=== PATIENT | male | born 2000 | race Caucasian/White ===

== ENCOUNTER 2023-11-07 15:11 | Emergency (ER) | payer OTHER, SELFPAY ==
[2023-11-07 15:15] VITALS: BP 161/88
[2023-11-07 15:48] LABS: % Basophils 0.3 % (0-2); % Eosinophils 0.2 % (0-6); % Immature Granulocytes 0.4 % (0-0.5); % Lymphocytes 12.8 % (20.5-51.1); % Monocytes 3.5 % (1.7-9.3); % Neutrophils 82.8 % (42.2-75.2); Absolute Lymphocytes 1.3 10^3/uL (1.2-3.4); Absolute Monocytes 0.4 10^3/uL (0.1-0.6); Absolute Neutrophils 8.2 10^3/uL (1.4-6.5); Hematocrit 39.4 % (39.0-52.0); Hemoglobin 14.6 g/dL (13.0-18.0); Mean Corp Hgb Conc. 37.1 g/dL (33.0-37.0); Mean Corpuscular Hgb 30.9 pg (27.0-31.0); Mean Corpuscular Volume 83.5 fL (80.0-94.0); Nucleated Red Blood Cells % 0 % (-); Platelet Count 162 10^3/uL (130-400); Red Blood Cell Count 4.72 10^6/uL (4.70-6.10); Red Cell Dist. Width 11.9 % (11.5-14.5); White Blood Cell Count 9.9 10^3/uL (4.8-10.8)
[2023-11-07 15:51] LABS: ALT (SGPT) 15 U/L (0-50); AST (SGOT) 25 U/L (17-59); Albumin 4.9 g/dl (3.5-5.0); Alkaline Phosphatase 70 U/L (38-126); Blood Urea Nitrogen 7 mg/dl (9-20); Calcium 9.4 mg/dl (8.4-10.2); Carbon Dioxide 24 mmol/L (22-30); Chloride 110 mmol/L (98-107); Glucose 106 mg/dl (70-99); Sodium 141 mmol/L (135-145); Total Bilirubin 1.1 mg/dl (0.2-1.3); Total Protein 7.4 g/dl (6.3-8.2); eGFR > 60.00
--- NOTE | 2023-11-07 18:32 | ED.GENMED ---
History of Present Illness
General
Chief Complaint: Bowel Problem
Time Seen by Provider: 11/07/23 17:59
Travel History
Have you had any contact with someone who has COVID-19?: No
Do you have any symptoms of coronavirus? Fever > 100 degrees, chills, cough, shortness of breath, sore throat, loss of taste or smell, muscle aches, or headache?: No
History of Present Illness
History of Present Illness:
23-year-old male presents to the emergency department for evaluation of coffee-ground emesis and melena that began this morning. He denies any abdominal pain. Has had multiple bouts of dark black stool throughout the day. He reports that he is a
nicotine user, denies NSAID use or anticoagulant use. Social alcohol use. Feels otherwise well, denies any dizziness, lightheadedness, abdominal pain, chest pain. Does have a sensation of a lump in the throat currently
Past History
Past History
ED Past Medical History: None
ED Past Surgical History: None
Social History
Tobacco: Smoker
Review of Systems
Review of Systems
Allergies reviewed?: Yes
All Other Systems: ROS reviewed and negative except as documented in HPI and ROS
Phy Exam
Physical Exam
Physical Exam:
GEN: Well appearing, NAD, WDWN
HEENT: Oral mucosa moist, no scleral icterus
Cardiac: Regular rate
Lung: No respiratory distress, no tachypnea
Abdomen: Soft/nontender
MSK: No gross deformity or injuries
Skin: Good color, no pallor or jaundice, no rashes
Neuro: AO x3, moves all extremities freely
Psych: Calm, cooperative
Course
Orders/Labs/Results
Orders:
Orders
11/07/23 15:30
Complete Blood Count/With Diff Urgent
Comprehensive Metabolic Panel Urgent
11/07/23 18:42
Pantoprazole [Protonix] 40 mg PO NOW STA
Abnormal Lab Results
11/07/23
15:30
MCHC 37.1 H g/dL
(33.0-37.0)
MPV 12.0 H fL
(7.4-10.4)
Absolute Neuts (auto) 8.2 H 10^3/uL
(1.4-6.5)
Neutrophils % 82.8 H %
(42.2-75.2)
Lymphocytes % 12.8 L %
(20.5-51.1)
Chloride 110 H mmol/L
(98-107)
BUN 7 L mg/dl
(9-20)
Glucose 106 H mg/dl
(70-99)
11/07/23 15:30
11/07/23 15:30
Vital Signs
Initial and Last Documented VS:
Initial Vital Signs
Temp Pulse Resp BP Pulse Ox
99.1 F 76 16 161/88 98
11/07/23 15:15 11/07/23 15:15 11/07/23 15:15 11/07/23 15:15 11/07/23 15:15
Last Documented Vital Signs
Temp Pulse Resp BP Pulse Ox
99.1 F 84 16 123/105 99
11/07/23 15:15 11/07/23 18:47 11/07/23 18:47 11/07/23 18:47 11/07/23 18:47
MDM/Problems Addressed
MDM/Problems Addressed:
I had a lengthy discussion with the patient regarding the risk of a presumed bleeding peptic ulcer and the potential benefit of admission for PPIs and urgent endoscopy. Patient is insistent that he does not want to be admitted as he has 3 young
children at home for which she cares for. Given that his hemoglobin and vital signs are perfectly stable and he is not on any anticoagulants I find that it is reasonable for the patient to be discharged home. I did discuss the case with
gastroenterology who unfortunate cannot assure guaranteed follow-up however despite this I am not able to convince the patient to be admitted. He is of sound mind and judgment to make this decision. Do not feel it is appropriate to sign him out
[facility] ADVICE as I feel it is not unreasonable to try high-dose PPIs and Carafate with GI follow-up as an outpatient. He is given strict ED return parameters that would warrant admission for urgent endoscopy
*Critical Care Note
Total Time (30-74mins, 75-104mins- exclusive of procedures): Not Applicable
ED Attending Note
-
Portions of this chart may have been created with voice recognition software.� Occasional wrong word or��sound alike� substitutions may have occurred due to the inherent limitations of voice recognition software.
Discharge Plan
Departure
Patient Disposition: Home (Routine Discharge)
Date of Disposition: 11/07/23
Time of Disposition: 18:33
Patient with high blood pressure during this ER visit?: Yes
Discharge Problem:
Melena
Instructions: Peptic Ulcers (DC)
Prescriptions:
New
pantoprazole [Protonix] 40 mg tablet,delayed release (DR/EC)
40 mg PO BID 20 Days Qty: 40 0RF
sucralfate [Carafate] 1 gram tablet
1 g PO ACHS Qty: 90 0RF
No Action
acetaminophen 325 MG tablet
650 mg PO Q4HPRN PRN (Reason: mild pain) Qty: 1 0RF
ibuprofen 200 MG tablet
400 - 600 mg PO Q6HPRN PRN (Reason: moderate pain) Qty: 1 0RF
oxycodone 5 MG tablet
5 mg PO Q4HPRN PRN (Reason: breakthrough/severe pain) Qty: 10 0RF
Referrals:
Tonie Pinto MD [Active] - Call in 1-3 days for appt (Please advise the office staff this is an ER follow up and urgent evaluation is requested)
Activity Restrictions/Additional Instructions:
Please do not hesitate to return if you develop dizziness, severe abdominal pain, or increasing black stool. We presume you have a bleeding intestinal ulcer which should improve with the medications I prescribed you however please be advised that
delaying an endoscopy may result in the symptoms worsening. I did communicate with our wood preparation supervisor who will attempt to help facilitate close outpatient follow-up but we cannot guarantee that this will be within the next week. If your
symptoms improve on the medications, continue taking them as prescribed until GI follow-up.
Interventions
Interventions:
*General Assessment Last Done: 11/07/23 15:15
*Neglect/Abuse Screening Last Done: 11/07/23 15:15
*ED COVID-19 Vaccine History Last Done: 11/07/23 15:15
*Nursing Disposition Last Done: 11/07/23 18:49
Discharge Date and Time
Discharge Date/Time: 11/07/23 18:49
[2023-11-07] MEDS: PROTONIX 40 MG PO (18:46)
[2023-11-07 18:47] VITALS: BP 123/105
== END 2023-11-07 18:49 | disposition home or self-care (01) ==
LOC: EMR 15:11
PROVIDERS: Emergency Medicine; EMERGENCY PHYSICIAN Emergency Medicine
DX: K92.1 Melena (principal); R03.0 Elevated blood-pressure reading, without diagnosis of hypertension; F17.200 Nicotine dependence, unspecified, uncomplicated
CPT/HCPCS: 99283; 80053; 85025

== ENCOUNTER 2023-11-09 16:32 | Observation (INO) | payer OTHER, SELFPAY ==
[2023-11-09 14:12] VITALS: BP 149/100
[2023-11-09 15:00] VITALS: BMI 20.8
--- NOTE | 2023-11-09 15:23 | ED.GENMED ---
History of Present Illness
General
Chief Complaint: Abdominal Symptoms
Source: patient
Exam Limitations: none
Time Seen by Provider: 11/09/23 14:23
Nursing documentation reviewed up to this point in time: agreed with
Travel History
Have you had any contact with someone who has COVID-19?: No
Do you have any symptoms of coronavirus? Fever > 100 degrees, chills, cough, shortness of breath, sore throat, loss of taste or smell, muscle aches, or headache?: No
History of Present Illness
History of Present Illness:
PT IS A 23 Y/O M with h/o smoking
was seen here on 11/07 for vomiting coffee grounds, small brigth red blood and black stool
had stable labs, no sypmtoms here, hg stable, bun normal
pt recommended admsision but he delinced and eusebio carito
had f/u with GI today
says he has been asymtpatomic
she did a rectal in the office but there was no stool in vault to test
pt collected stool at home and called the office back saying that he had black streaks within his brown stool and he was told to come to the ER for an EGD. Patient presents today here saying that he supposed to have this procedure urgently. I was
aware that he was being sent here because of a call and note from Dr. Howe
But the patient did eat a couple of bites at lunchtime and thus cannot have an endoscopy today. He is willing to stay for endoscopy for tomorrow.
Past History
Past History
ED Past Medical History: None
ED Past Surgical History: None
Social History
Tobacco: Smoker
Alcohol: Occasional
Drug: None
Personal:
Living: with family
Review of Systems
Review of Systems
Allergies reviewed?: Yes
All Other Systems: Not applicable
Phy Exam
Physical Exam
Physical Exam:
GENERAL: Alert , in no apparent distress
EYE: pupils equal and reactive
NECK: Supple
ENT: o/p clr, mmm.
CARDIAC: Regular rate and rhythm .
LUNGS: Clear breath sounds bilaterally, no acute respiratory distress, no wheezes/rales/rhonchi
ABDOMEN: Soft, without focal tenderness, no r/g, no cvat, normal bowel sounds
Patient had a stool sample with him which is brown stool which tested heme negative
NEUROLOGICAL: Alert and oriented, no focal neuro deficits
SKIN: Warm and dry, skin intact.
MUSCULOSKELETAL: No edema, well perfused. neg olga's sign
PSYCH: Normal and appropriate interaction.
Course
Orders/Labs/Results
Orders:
Orders
11/09/23 Dinner
Full Liquids
Flush Continuous pump feedings with water (mL/hr): 25
11/09/23 15:22
Complete Blood Count/With Diff Urgent
Comprehensive Metabolic Panel Urgent
Pantoprazole [Protonix IV] 40 mg IV NOW STA
11/09/23 15:23
Lipase Urgent
Vital Signs
Initial and Last Documented VS:
Initial Vital Signs
Temp Pulse Resp BP Pulse Ox
98.9 F 98 16 149/100 98
11/09/23 14:12 11/09/23 14:12 11/09/23 14:12 11/09/23 14:12 11/09/23 14:12
Last Documented Vital Signs
Temp Pulse Resp BP Pulse Ox
98.9 F 98 16 149/100 98
11/09/23 14:12 11/09/23 14:12 11/09/23 14:12 11/09/23 14:12 11/09/23 14:12
MDM/Problems Addressed
Differential Diagnosis Includes:
Upper GI bleed, GERD, gastritis
MDM/Problems Addressed:
23-year-old male to be admitted for to EGD after having an episode of coffee-ground emesis followed by red bleeding and then black stool 2 days ago. Patient had a stable hemoglobin at that time and decided to leave without being admitted. He saw
GI as an outpatient today and was scheduled to have an EGD next week but then called back saying that he had dark spots within his brown stool and he was told to come to the ER. Patient is otherwise asymptomatic. He has the stool with him and I
tested for blood which was negative. He has no abdominal tenderness. He was seen by the GI team here and after much discussion because he ate several bites of a sandwich at noon he is unable to have his endoscopy today but they we will do him
tomorrow and he agreed.
*Critical Care Note
Total Time (30-74mins, 75-104mins- exclusive of procedures): Not Applicable
ED Attending Note
-
Portions of this chart may have been created with voice recognition software.� Occasional wrong word or��sound alike� substitutions may have occurred due to the inherent limitations of voice recognition software.
Discharge Plan
Departure
Patient Disposition: Admit
Date of Disposition: 11/09/23
Time of Disposition: 15:28
Admit to: Med/Surg
Presentation/result/management discussed w/ accepting MD/DO: Hospitalist
Condition: Fair
Covid-19: Not Applicable
Discharge Problem:
Abdominal pain
Prescriptions:
No Action
acetaminophen 325 MG tablet
650 mg PO Q4HPRN PRN (Reason: mild pain) Qty: 1 0RF
ibuprofen 200 MG tablet
400 - 600 mg PO Q6HPRN PRN (Reason: moderate pain) Qty: 1 0RF
oxycodone 5 MG tablet
5 mg PO Q4HPRN PRN (Reason: breakthrough/severe pain) Qty: 10 0RF
pantoprazole [Protonix] 40 mg tablet,delayed release (DR/EC)
40 mg PO BID 20 Days Qty: 40 0RF
sucralfate [Carafate] 1 gram tablet
1 g PO ACHS Qty: 90 0RF
Referrals:
NONE,* [Family Provider] -
Interventions
Interventions:
*Risk Screen - Suicide Last Done: 11/09/23 14:56
*General Assessment Last Done: 11/09/23 14:12
*Neglect/Abuse Screening Last Done: 11/09/23 14:56
*ED COVID-19 Vaccine History Last Done: 11/09/23 14:12
ZE-Bduyjs-Nxxgaacvac Assessment Last Done: 11/09/23 14:56
--- NOTE | 2023-11-09 15:31 | W.PN.UPDATE ---
Addendum entered and electronically signed by Tonie Pinto MD 11/09/23 19:39:
I saw and examined the patient.
The INDUST[employer] or PA's note was reviewed and I agree with the note.
Comment: Patient seen by Dr. Bland in the office today.
Now presenting with black stool intermittently since 11/07 after an episode of coffee-ground emesis.
Hemoglobin stable and BUN in normal range
Upper endoscopy tomorrow
N.p.o. past midnight and continue PPI
Original Note:
Update Note
Progress Note Update
see scanned in Dr. Bland note from today for consultation. noted with CGE 11/07 then dizziness and some black stool. Now presents for second ER visit with symptoms. He ate few bits of cheese steak prior to ER. hbg 14.6 11/07. last NSAID use 2
days ago.
-coffee ground emesis
-report of melena
-chronic change in stool with occasional loose stools
PLAN:
ETiology PUD, MW tear, vs other
EGD in AM
PPI
ok for full liquid dinner-- NPO in AM
check labs now
check stool studies, celiac, Immunoglobin A, TSH fecal hector as recommended by Dr. Bland
discussed with patient to stay for EGD in AM vs OP eval -- he is agreeable to stay.
--- NOTE | 2023-11-09 15:50 | HPS.HSE ---
Family Physician
-
Family Physician: * NONE
Chief Complaint
-
Coffee-ground emesis and black stool
History of Present Illness
23-year-old male who was seen in the emergency room on 11/07/2023 with coffee-ground emesis and some bright red and black stool. He had stable labs at that time. He was recommended to get admitted but he declined and wanted to go home. Patient had
a follow-up with GI today. Rectal in the office had no stool in the vault. Patient went home and had some black streaks with brown stools and he was advised to go to the ER. Patient felt dizzy yesterday but he also stated that he had some stress
yesterday. No dizziness today. No abdominal pain
Medical History
Past Medical History
Past Medical History: Reports Psychiatric (Depression)
Past Surgical History: Reports Appendectomy and Other (Tubes in the ear)
Social History
Tobacco: Vaping
Alcohol: Occasional
Drug: Marijuana
Personal:
Living: With Family
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
Family History
Family History: Other (Mother with multiple sclerosis. Father side with GI issues he is not sure what)
Allergies / Home Medications
Allergies reflects when Allergies were last updated in [employer].
Home Medications with original date entered in [employer]
Allergy/Medication List:
Allergies
Allergy/AdvReac Type Severity Reaction Status Date / Time
No Known Allergies Allergy Verified 11/09/23 14:16
Home Medications
pantoprazole 40 mg tablet,delayed release (Protonix) 40 mg PO BID 20 days #40 tabs 11/07/23
sucralfate 1 gram tablet (Carafate) 1 g PO ACHS #90 tabs 11/07/23
Medical Marijuana 0 puff inhalation HSPRN PRN anxiety/sleep 11/09/23
Medical Marijuana 4 - 5 puff inhalation HSPRN PRN anxiety 11/09/23
Review of Systems
-
A 12 point ROS was completed and negative except as noted: Yes
Respiratory: Denies Trouble Breathing
Cardiac: Denies Chest Pain
Abdomen/GI: Reports Vomiting, Bloody Stools and Black Stools; Denies Abdominal Pain
Neurological: Reports Dizzy (Yesterday)
Physical Exam
Vital Signs
Vital Signs
Temp Pulse Resp BP Pulse Ox
98.9 F 98 16 149/100 98
11/09/23 14:12 11/09/23 14:12 11/09/23 14:12 11/09/23 14:12 11/09/23 14:12
Physical Exam
General: Comfortable
Cardiac: S1/S2 and Regular Rhythm
GI: Soft, Non Tender and Normal Bowel Sounds
Neuro: Nonfocal/grossly intact
Psych: Intact Judgment/Insight
Impression/Plan
-
IMPRESSION/PLAN:
# coffee-ground emesis and also some blood and some black stools
Some dizziness yesterday
10 pound weight loss because of poor or p.o. intake
Admit
Continue PPI twice daily
EGD tomorrow
GI has been consulted
For liquid diet and n.p.o. after midnight
#Vaping-advised to stop
#Marijuana use-advised to stop
# SCDs for DVT prophylaxis
#Full code
Discussed with nursing at bedside
[2023-11-09 16:04] LABS: % Basophils 0.7 % (0-2); % Eosinophils 1.6 % (0-6); % Immature Granulocytes 0.3 % (0-0.5); % Lymphocytes 23.7 % (20.5-51.1); % Monocytes 5.9 % (1.7-9.3); % Neutrophils 67.8 % (42.2-75.2); Absolute Basophils 0.1 10^3/uL (0-0.2); Absolute Eosinophils 0.1 10^3/uL (0-0.7); Absolute Lymphocytes 1.8 10^3/uL (1.2-3.4); Absolute Monocytes 0.5 10^3/uL (0.1-0.6); Absolute Neutrophils 5.2 10^3/uL (1.4-6.5); Hematocrit 38.7 % (39.0-52.0); Hemoglobin 14.3 g/dL (13.0-18.0); Mean Corpuscular Hgb 30.8 pg (27.0-31.0); Mean Corpuscular Volume 83.4 fL (80.0-94.0); Mean Platelet Volume 11.5 fL (7.4-10.4); Nucleated Red Blood Cells % 0 % (-); Platelet Count 264 10^3/uL (130-400); Red Blood Cell Count 4.64 10^6/uL (4.70-6.10); Red Cell Dist. Width 11.9 % (11.5-14.5); White Blood Cell Count 7.6 10^3/uL (4.8-10.8)
[2023-11-09] MEDS: PROTONIX IV 40 MG IV (16:06)
[2023-11-09 16:17] LABS: ALT (SGPT) 14 U/L (0-50); AST (SGOT) 20 U/L (17-59); Albumin 4.6 g/dl (3.5-5.0); Alkaline Phosphatase 69 U/L (38-126); Blood Urea Nitrogen 10 mg/dl (9-20); Calcium 9.2 mg/dl (8.4-10.2); Carbon Dioxide 27 mmol/L (22-30); Chloride 109 mmol/L (98-107); Estimated Creatinine Clearance > 125 ml/min; Glucose 90 mg/dl (70-99); Lipase 471 U/L (23-300); Potassium 3.7 mmol/L (3.5-5.1); Sodium 140 mmol/L (135-145); Total Bilirubin 1.2 mg/dl (0.2-1.3); Total Protein 7.3 g/dl (6.3-8.2); eGFR > 60.00
[2023-11-09 16:39] LABS: IgA 179 mg/dl (70-400)
[2023-11-09] MEDS: CARAFATE 1 GRAM PO ×2 (17:22→21:24)
[2023-11-09 17:25] VITALS: BP 113/55; BMI 20.7
--- NOTE | 2023-11-09 17:38 | PTCARENOTE ---
Pt admitted to room 415-02. Admission assessment done, pt has no complaints of pain at this time.
[2023-11-09] MEDS: TYLENOL 650 MG PO (23:04)
[2023-11-09 23:09] VITALS: BP 119/49
[2023-11-10 07:00] VITALS: BP 128/79
[2023-11-10 07:55] LABS: % Basophils 0.5 % (0-2); % Eosinophils 2.9 % (0-6); % Immature Granulocytes 0.4 % (0-0.5); % Neutrophils 57.2 % (42.2-75.2); Absolute Eosinophils 0.2 10^3/uL (0-0.7); Absolute Lymphocytes 2.5 10^3/uL (1.2-3.4); Absolute Monocytes 0.7 10^3/uL (0.1-0.6); Absolute Neutrophils 4.7 10^3/uL (1.4-6.5); Hemoglobin 14.6 g/dL (13.0-18.0); Mean Corp Hgb Conc. 35.6 g/dL (33.0-37.0); Mean Corpuscular Hgb 30.9 pg (27.0-31.0); Mean Corpuscular Volume 86.7 fL (80.0-94.0); Mean Platelet Volume 12.1 fL (7.4-10.4); Nucleated Red Blood Cells % 0 % (-); Platelet Count 258 10^3/uL (130-400); Red Blood Cell Count 4.73 10^6/uL (4.70-6.10); Red Cell Dist. Width 11.9 % (11.5-14.5); White Blood Cell Count 8.2 10^3/uL (4.8-10.8)
[2023-11-10 08:07] LABS: Blood Urea Nitrogen 11 mg/dl (9-20); Calcium 9.5 mg/dl (8.4-10.2); Carbon Dioxide 26 mmol/L (22-30); Chloride 103 mmol/L (98-107); Estimated Creatinine Clearance 121 ml/min; Glucose 90 mg/dl (70-99); Magnesium 2.2 mg/dl (1.6-2.3); Sodium 141 mmol/L (135-145); eGFR > 60.00
[2023-11-10] MEDS: CARAFATE PO (08:09)
[2023-11-10 08:22] LABS: Potassium 3.9 mmol/L (3.5-5.1)
[2023-11-10 08:33] LABS: TSH Reflex To Free T4 1.11 uIU/ml (0.47-4.68)
[2023-11-10 11:00] VITALS: BP 120/54
--- NOTE | 2023-11-10 11:29 | CM ---
Addendum entered by Jess Fabian 11/10/23 15:13:
Patient sent picture of secondary insurance, CM will fax to Admissions. OBS signed provided, signed, placed in chart.
Plan; home no needs.
Original Note:
Patient seen bedside, initial assessment completed. Patient reports he resides with his children and children's mother in an apartment on the first floor. Patient denies DME, VN, or SNF. Patient reports outpatient PT at [facility] in the past. Patient
reports PCP is through [facility] in [place], but he does not have a set primary physician. Pharmacy used [facility]. OBS form reviewed, refused to sign, patient reports he does have a secondary insurance through [employer]. CM will
continue to follow for discharge planning needs.
Plan; home no needs anticipated.
[2023-11-10 11:40] VITALS: BP 112/55; BP 128/79
[2023-11-10 12:45] VITALS: BP 120/54
[2023-11-10] MEDS: CARAFATE 1 GRAM PO (13:02)
--- NOTE | 2023-11-10 13:24 | W.PN.UPDATE ---
Update Note
Progress Note Update
Also noted to have mildly elevated lipase level on admission yesterday currently has no abdominal pain and LFTs are normal, doubt pancreatitis recommend repeat lipase as outpatient in 2 to 4 weeks
--- NOTE | 2023-11-10 14:35 | W.PN.HOSP.TC ---
Today's Communication/Plan
-
Discharge
Patient needs to follow-up with GI for the results of the biopsy
Assessment / Plan
Assessment / Plan
CVS: S1-S2 normal
Chest: CTA B/L
Abdomen: Soft, NT / Bowel sounds present
Extremities: No edema, normal pulses
#Coffee-ground emesis and also some blood and some black stools
Endoscopy reportedly normal. Biopsies taken per discussion with GI.
Computer-problems therefore report is not up for me to review
Okay to stop Carafate and PPI per discussion with GI
#Mildly elevated lipase likely secondary to vomiting-Repeat as outpatient
#Vaping-advised to stop
#Marijuana use-advised to stop
# SCDs for DVT prophylaxis
#Full code
D/W GI
D/W RN
Anticipated Discharge: Today
Subjective/Interval History
-
Date of Service: November 10, 2023
Objective Data
-
Labs:
Laboratory Results
11/10/23
06:46
WBC 8.2
Hgb 14.6
Hct 41.0
Plt Count 258
Sodium 141
Potassium 3.9
Chloride 103
Carbon Dioxide 26
BUN 11
Creatinine 0.9
Glucose 90
Calcium 9.5
Vital Signs:
Vital Signs
Temp Pulse Resp BP Pulse Ox
97.9 F 65 18 120/54 100
11/10/23 12:45 11/10/23 12:45 11/10/23 12:45 11/10/23 12:45 11/10/23 12:45
I&O
11/09/23 11/10/23 11/11/23
06:59 06:59 06:59
Intake Total 240 / 240
Balance 240 / 240
--- NOTE | 2023-11-10 14:49 | W.DS.TRANS ---
Addendum entered and electronically signed by Gee Dodd MD 11/10/23 15:58:
Dictation- [id number]
Original Note:
DC Summary - Supervisor Stave Finishing
-
Discharge Instructions:
Discharge Diagnosis/Procedures Coffee-ground emesis
Diet As tolerated
Activity As tolerated
Driving Restrictions As prior to admission
Blood Work lipase level in 2-4 weeks- Get script from PCP
Stop these medications: Stop Carafate and Protonix
Instructions:
Stand-Alone Forms:
Changes to Home Medications: Yes
Discharge Medications:
Home Medication Changes
Stop Carafate and Protonix
Pending Results: Yes
Additional Pending Results:
Celiac panel and biopsy pending
[2023-11-11 23:14] LABS: Endomysial IgA Antibody Titer <1:10 (<1:10)
[2023-11-12 02:02] LABS: tTG IgA Antibody <1.02 FLU (0.00-4.99)
[2023-11-13 01:49] LABS: IgA 175 mg/dl (70-400)
[2023-11-14 16:44] LABS: Calprotectin, Fecal 20 ug/g (<=49)
== END 2023-11-10 15:22 | disposition home or self-care (01) ==
LOC: 4 WEST ACU 16:32
PROVIDERS: Nurse Practitioner Adult Health; Physician Assistant; ADMITTING PHYSICIAN Hospitalist; EMERGENCY PHYSICIAN Emergency Medicine
DX: K92.0 Hematemesis (principal); R10.9 Unspecified abdominal pain; K92.1 Melena; F17.290 Nicotine dependence, other tobacco product, uncomplicated; R42 Dizziness and giddiness; R63.4 Abnormal weight loss; F12.90 Cannabis use, unspecified, uncomplicated; Z90.49 Acquired absence of other specified parts of digestive tract; Z68.20 Body mass index [BMI] 20.0-20.9, adult
CPT/HCPCS: 43239; 88305; 80048; 80053; 82784; 83516; 83690; 83735; 83993; 84443; 85025; 86231; 87328; 87329; 96374; 99285; G0378